=== PATIENT | female | born 1995 | race Caucasian/White ===

== ENCOUNTER 2019-02-16 16:49 | Emergency (ER) | payer OTHER ==
[~2019-02-16] VITALS: Ht 162.6 cm; Wt 63.0 kg
[2019-02-16 17:42] LABS: BASOPHILS # (AUTO) 0.03 x10^3/uL (0-0.1); BASOPHILS % (AUTO) 0 % (0-1); EOSINOPHILS # (AUTO) 0.08 x10^3/uL (0-0.4); EOSINOPHILS % (AUTO) 1 % (1-7); LYMPHOCYTES # (AUTO) 1.89 x10^3/uL (1-3.4); LYMPHOCYTES % (AUTO) 25 % (22-44); MD NO; MEAN CORPUSCULAR HEMOGLOBIN 30.3 pg (27.0-34.8); MEAN CORPUSCULAR HGB CONC 33.6 g/dL (32.4-35.8); MEAN CORPUSCULAR VOLUME 90.2 fL (80-100); MEAN PLATELET VOLUME 8.8 fL (7.4-10.4); MONOCYTES # (AUTO) 0.38 x10^3/uL (0.2-0.8); MONOCYTES % (AUTO) 5 % (2-9); NEUTROPHILS # (AUTO) 5.27 x10^3/uL (1.8-6.8); NEUTROPHILS % (AUTO) 69 % (42-75); PLATELET COUNT 238 x10^3/uL (130-400); RED BLOOD COUNT 4.55 x10^6/uL (3.82-5.3); RED CELL DISTRIBUTION WIDTH 12.6 % (9.6-15.2)
[2019-02-16 17:45] LABS: ANION GAP 6 mmol/L (5-15); CALCIUM 8.3 mg/dL (8.5-10.1); CHLORIDE 108 mmol/L (98-107); CREATININE 1.04 mg/dL (0.55-1.02)
--- NOTE | 2019-02-16 18:05 | NUR ---
NAX1
--- NOTE | 2019-02-16 18:09 | NUR ---
NAX2 WITH CHECK IN BATHROOM
--- NOTE | 2019-02-16 18:27 | NUR ---
NAX3
[2019-02-16 19:47] LABS: MICROSCOPIC AUTO
--- NOTE | 2019-02-16 19:48 | NUR ---
FRESH URINE SENT TO LAB. PT ATTACHED TO MONITORS, VSS. PT AWARE OF POC, WAITING FOR URINE THE PT WILL BE UP FOR RE-CHECK.
[2019-02-16 19:58] LABS: CULTURE INDICATED? YES
--- NOTE | 2019-02-16 20:01 | NUR ---
ALL RESULTS BACK, PT UP FOR RE-EVAL. RESTING PEACEFULLY ON GURAMELIA, NAD.
--- NOTE | 2019-02-16 20:11 | NUR ---
AT BEDSIDE FOR RE-EVAL.
[2019-02-16 20:31] VITALS: BP 108/48
== END 2019-02-16 18:30 | disposition home or self-care (01) ==
LOC: ED 18:23
DX: R10.2 Pelvic and perineal pain (principal); R30.0 Dysuria
CPT/HCPCS: 36415; 76830; 80048; 81001; 82040; 84703; 85025; 87086; 99284